=== PATIENT | male | born 1960 | race Caucasian/White ===

== ENCOUNTER 2020-04-27 17:10 | IRF | payer OTHER, SELFPAY ==
--- NOTE | ~2020-04-27 | MR_ITS ---
EXAMINATION: MR brain/brain stem wo/w con DATE: 05/06/2020 12:48 INDICATION: Adenocarcinoma of lung with metastasis. TECHNIQUE: Magnetic resonance imaging (MRI) of the brain and brainstem was performed without and with 12 mL MultiHance intravenous contrast. Sequences included sagittal and axial T1-weighted FSE, axial diffusion-weighted FS EPI, axial T2*-weighted GRE, axial T2-weighted FLAIR Propeller, and axial T2-we ighted Propeller. Postcontrast sequences included axial, sagittal, and coronal T1-weighted FSE. Appar ent diffusion coefficient (ADC) maps were created. COMPARISON: None. FINDINGS: There is diffuse brain volume loss. There is arachnoid cyst posterior to the cerebellum diogenes suring 5.4 x 2.4 cm. There are scattered areas of nonspecific increased T2-weighted signal intensity in the cerebral white matter, which is within normal limits for the patient's age. The ventricles are normal in size. The paranasal sinuses are clear. The orbits are normal. The mastoid air cells are no rmal. IMPRESSION: 1. No evidence of metastatic disease. Reviewed, dictated and finalized at location A. RER PRESTRESSED CONCRETE
--- NOTE | ~2020-04-27 | XR_ITS ---
XR abdomen/kub 1V 05/09/2020 03:41 Indication: Difficulty urinating. Procedure: KUB Comparison: No prior studies for comparison. Findings: Nonobstructive bowel gas pattern. Moderate colonic fecal loading. Small right pleural effus ion. Possible gallstones. Right basilar consolidation may represent atelectasis or pneumonia. There a re vascular calcifications in the pelvis. There are surgical changes of the left hip. Impression: 1: No acute abdominal abnormality. 2: Right basilar airspace disease, atelectasis versus pneumonia. Small right effusion. 3: Possible cholelithiasis. Reviewed, dictated and finalized at location B. AND DRUG INSPECTOR Impression: 1: No acute abdominal abnormality. 2: Right basilar airspace disease, atelectasis versus pneumonia. Small right ef fusion. 3: Possible cholelithiasis.
--- NOTE | 2020-04-27 17:20 | ADMGEN ---
This patient, Nelson Randolph, was admitted to [facility] Room 224-02. Patient/family oriented to hospital policies and general routines including ID bracelet, bed and alarms, visiting hours, pain management, procedures, bathroom and other care routines, personal items, smoking policy, room service/diet, and visiting hours. Information on how to activate the Rapid Response Team has been discussed. Patient/Family are encouraged to report perceived risks to care and to ask questions if they do not understand what they are told or what they should do.
[2020-04-27 17:25] VITALS: BMI 20.6
[2020-04-27 17:30] VITALS: BP 150/74; PULSE 102; RESP 22; TEMP 37.2; O2SAT 100
[2020-04-27] MEDS: oxyCODONE HCL (*CRX) 5 MG TAB IR PO (19:42)
[2020-04-27 20:40] VITALS: PULSE 100; RESP 20; O2SAT 99
[2020-04-27 22:00] VITALS: BP 146/74; PULSE 100; RESP 20; TEMP 37.3; O2SAT 99
[2020-04-27] MEDS: ACETAMINOPHEN 325 MG TABLET 650 MG PO (22:56)
[2020-04-28] MEDS: oxyCODONE HCL (*CRX) 5 MG TAB IR PO ×2 (00:48→15:23)
[2020-04-28] MEDS: ACETAMINOPHEN 325 MG TABLET 650 MG PO ×3 (03:50→17:32)
[2020-04-28 05:02] LABS: Basophils Percent Auto 0.3 % (0.2-1.2); Eosinophils Absolute Auto 0.2 K/mm3 (0-0.3); Eosinophils Percent Auto 1.8 % (0-4.4); Hemoglobin 9.1 g/dL (14.0-18.0); Immature Granulocyte Absolute 0.41 K/mm3 (0.00-0.031); Immature Granulocyte Percent A 4.7 % (0-0.5); Lymphocytes Absolute Auto 1.26 K/mm3 (0.9-3.2); Lymphocytes Percent Auto 14.5 % (18.3-44.2); Mean Corpuscular HGB Conc 33.7 g/dl (32-36); Mean Corpuscular Hemoglobin 31.8 pg (26-34); Mean Corpuscular Volume 94.4 fl (80-100); Mean Platelet Volume 8.5 fl (7.4-10.4); Monocytes Absolute Auto 1.8 K/mm3 (0.1-0.6); Monocytes Percent Auto 20.8 % (2.6-8.5); Neutrophils Percent Auto 57.9 % (45.5-73.1); Platelet Count Result 369 k/mm3 (150-375); Red Blood Count 2.86 M/mm3 (4.6-6.20); Red Cell Distribution Width 12.2 % (11.5-14.5); White Blood Count 8.7 K/mm3 (4.5-10.0)
[2020-04-28 05:16] LABS: Anion Gap 5 mmol/L (8-16); Blood Urea Nitrogen 6 mg/dL (9-20); Calcium 9.1 mg/dL (8.4-10.2); Carbon Dioxide 32 mmol/L (22-30); Chloride 99 mmol/L (98-107); Estimated CRCL calculation 100 ml/min; Estimated Glomerular Filt Rate > 60; Glucose 129 mg/dL (75-110); Potassium 3.9 mmol/L (3.4-5.0); Sodium 136 mmol/L (137-145)
[2020-04-28 06:00] VITALS: BP 125/67; PULSE 86; RESP 18; TEMP 36.9; O2SAT 100
[2020-04-28] MEDS: oxyCODONE HCL (*CRX) 5 MG TAB IR 10 MG PO ×2 (09:16→21:52)
[2020-04-28] MEDS: ENOXAPARIN 40 MG/0.4 ML SYRINGE SUB-Q (09:16)
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
[2020-04-28 12:20] VITALS: BMI 20.6
[2020-04-28 14:00] VITALS: BP 133/66; PULSE 105; RESP 22; TEMP 37.1; O2SAT 100
--- NOTE | 2020-04-28 14:32 | RPD ---
INDIVIDUALIZED PLAN OF CARE FOR Nelson Randolph Brief Synthesis of Pre-Admission Screen, Post-Admission Evaluation and Therapy Evaluations: The patient presents to rehab with a left pathologic intertrochanteric femur fracture. Comorbidities include status post left intramedullary nailing, acute postoperative pain, acute blood loss anemia, lung cancer, widespread mutative metastatic disease, hyponatremia, hypertension, and tachycardia. The complexity of the patient's medical management, nursing, and therapy needs require an inpatient rehab hospital stay with a physician-led interdisciplinary team approach. The patient?s needs will be best met in an intensive program vs. at a lower level of care. The patient requires physician services for medical oversight, management of postop complications in setting of present comorbidities, and pain management. The patient requires nursing services for DVT prophylactics, infection protection, medication management and education, pressure relief, and wound care. Deficits include:ADLs, Balance, Endurance, Family Training/Education, Mobility, Pain Management, ROM, Safety, Strength, and Transfers Camera Technician/Case Management for: Discharge Planning and Patient/Family Counseling Physical Therapy: 5 days per week for 90 minutes. Treatments may include: Therapeutic Exercise, Gait Training, Neuromuscular Re-education, Transfer Training, Community Reintegration, Bed Mobility, Patient/Family Education, Wheelchair Mobility Group Therapy/Concurrent Therapy Rationales: -Improve attention span during functional activities in a distracted environment. -Enhance problem solving and/or adequate judgment skills during functional activities in a distracted environment. -Promote increased safety awareness in a distracted environment to reduce fall risk with functional tasks, transfers, and ambulation to allow a more safe, self-sufficient return to the home environment. -Improve dynamic balance skills to promote safety and independence with functional activities in a distracted environment for maximum gain. Occupational Therapy: 5 days per week for 90 minutes. Treatments may include: Therapeutic Exercise, Therapeutic Activity, Cognitive Training, Self-Care Transfer Training, Community Reintegration, Home Management, Patient/Family Education, Wheelchair Mobility Training, Energy Conservation Training Group Therapy/Concurrent Therapy Rationales: -Allow therapist to observe and teach generalization and carry-over of skills learned in individual therapy. -Enhance problem solving and sequencing skills during therapeutic activities in a distracted environment. -Promote increased safety awareness in a realistic setting to reduce fall risk with functional tasks due to visual and verbal distractions. -Increase functional level with ADLs, ADL transfers and use of adaptive equipment through therapeutic activities with others while promoting safety to allow a more safe, self-sufficient return home. Medical Prognosis: Good Anticipated Length of Stay: 7 days Rehab Goals: Eating Goal: 06-Independent Oral Hygiene Goal: 06-Independent Toileting Hygiene Goal: 06-Independent Shower/Bathe Self Goal: 06-Independent Upper Body Dressing Goal: 06-Independent Lower Body Dressing Goal: 06-Independent Putting On/Taking Off Footwear Goal: 06-Independent Rolling Left and Right Goal: 06-Independent Sit to Lying Goal: 04-Supervision or Touching Assistance Lying to Sitting on Side of Bed Goal: 04-Supervision or Touching Assistance Sit to Stand Goal: 06-Independent Chair/Nxm-vo-Pmhhf Transfer Goal: 06-Independent Toilet Transfer Goal: 06-Independent Car Transfer Goal: 06-Independent Walk 10' Goal: 06-Independent Walk 50' with Two Turns Goal: 06-Independent Walk 150' Goal: 06-Independent Walk 10' on Uneven Surface Goal: 04-Supervision or Touching Assistance 1 Step (Curb) Goal: 04-Supervision or Touching Assistance 4 Steps Goal: 04-Supervision or Touching Assistance 1
[2020-04-28 22:00] VITALS: BP 132/62; PULSE 89; RESP 19; TEMP 36.8; O2SAT 100
[2020-04-29] MEDS: ACETAMINOPHEN 325 MG TABLET 650 MG PO ×4 (01:10→21:50)
[2020-04-29] MEDS: oxyCODONE HCL (*CRX) 5 MG TAB IR 10 MG PO ×3 (04:54→18:16)
[2020-04-29 06:00] VITALS: BP 133/70; PULSE 86; RESP 19; TEMP 36.9; O2SAT 100
[2020-04-29] MEDS: ENOXAPARIN 40 MG/0.4 ML SYRINGE SUB-Q (08:31)
[2020-04-29 14:00] VITALS: BP 134/67; PULSE 96; RESP 20; TEMP 36.4; O2SAT 100
[2020-04-29] MEDS: CYCLOBENZAPRINE HCL 5 MG TABLET PO ×2 (14:44→21:52)
[2020-04-30] MEDS: oxyCODONE HCL (*CRX) 5 MG TAB IR 10 MG PO ×4 (00:52→23:15)
[2020-04-30] MEDS: ACETAMINOPHEN 325 MG TABLET 650 MG PO ×3 (04:05→20:28)
[2020-04-30 06:00] VITALS: BP 127/71; PULSE 92; RESP 20; TEMP 36.2; O2SAT 100
[2020-04-30] MEDS: CYCLOBENZAPRINE HCL 5 MG TABLET PO ×2 (06:18→12:20)
[2020-04-30 08:00] VITALS: PULSE 92; RESP 20; O2SAT 100
[2020-04-30] MEDS: ENOXAPARIN 40 MG/0.4 ML SYRINGE SUB-Q (08:19)
[2020-04-30 12:15] VITALS: TEMP 36.2
--- NOTE | 2020-04-30 12:40 | WPDNEURORHBP ---
Subjective Date/time seen: 04/30/20 12:40 60 years old has been admitted to rehab floor for the diagnosis of left pathological intertrochanteric femur fracture in addition to the comorbid condition of arthritis and pulmonary nodules and history of right partial lobectomy Review of Systems Review of Systems: All systems reviewed & are unremarkable except as noted in HPI and below Functional Status Ambulation Ability Ability to Ambulate 10 Feet: Contact Guard Ability to Ambulate 50 Feet With 2 Turns: Contact Guard Ambulation Assistive Devices: Walker, Standard Transfers Ability Ability to Transfer In/Out of Chair: Contact Guard Exam Narrative: Exam Narrative: on examination is awake alert cooperative in no obvious acute distress heart regular lungs clear abdomen is soft neurological examination is unchanged the wounds clean and is involving the physical therapy and occupational therapy Objective Data Vital Signs Vital Signs: Vital Signs - 24 hr 04/29/20 14:00 04/30/20 06:00 04/30/20 08:00 Temperature 36.4 C 36.2 C L Pulse Rate 96 92 92 Respiratory Rate 20 20 20 Blood Pressure 134/67 127/71 Pulse Oximetry 100 100 100 04/30/20 12:15 Temperature 36.2 C L Pulse Rate Respiratory Rate Blood Pressure Pulse Oximetry Intake/Output Intake/Output: Intake & Output 04/27/20 04/28/20 04/29/20 04/30/20 23:59 23:59 23:59 23:59 Intake Total 240 720 240 Balance 240 720 240 Meds/Results Medications: Active Medications Generic Name Dose Route Start Last Admin Trade Name Freq PRN Reason Stop Dose Admin Acetaminophen 650 mg 04/27/20 18:06 04/30/20 12:15 Acetaminophen 325 Mg Tablet PO 650 mg Q4H PRN Administration Mild Pain (1-3) or Fever Cyclobenzaprine HCl 5 mg 04/29/20 12:32 04/30/20 12:20 Cyclobenzaprine Hcl 5 Mg Tablet PO 5 mg Q6H PRN Administration Muscle Spasm Enoxaparin Sodium 40 mg 04/28/20 09:00 04/30/20 08:19 Enoxaparin 40 Mg/0.4 Ml Syringe SUB-Q 40 mg DAILY PEEWEE Administration Oxycodone HCl 5 mg 04/27/20 18:06 04/28/20 15:23 Oxycodone Hcl (*Crx) 5 Mg Tab Ir PO 5 mg Q6H PRN Administration Pain (Scale Score 4-6) Oxycodone HCl 10 mg 04/27/20 18:06 04/30/20 07:51 Oxycodone Hcl (*Crx) 5 Mg Tab Ir PO 10 mg Q6H PRN Administration Pain (Scale Score 7-10) Progress Note: A&P Assessment and Plan (1) Carcinoma of right lung: Code(s): C34.91 - Malignant neoplasm of unspecified part of right bronchus or lung Status: Acute (2) Intertrochanteric fracture of left femur: Code(s): S72.142A - Displaced intertrochanteric fracture of left femur, initial encounter for closed fracture Status: Acute Additional Plan stable therapy is being continued as such
[2020-04-30 14:00] VITALS: BP 137/65; PULSE 101; RESP 20; TEMP 37; O2SAT 100
[2020-04-30] MEDS: CYCLOBENZAPRINE HCL 10 MG TABLET PO (20:31)
[2020-04-30 20:33] VITALS: BP 122/64; PULSE 100; RESP 18; TEMP 37.2; O2SAT 100
[2020-05-01] MEDS: ACETAMINOPHEN 325 MG TABLET 650 MG PO ×4 (03:25→23:09)
[2020-05-01] MEDS: CYCLOBENZAPRINE HCL 10 MG TABLET PO ×3 (03:27→15:51)
[2020-05-01 04:52] VITALS: BP 120/71; PULSE 95; RESP 18; TEMP 36.8; O2SAT 99
[2020-05-01] MEDS: oxyCODONE HCL (*CRX) 5 MG TAB IR 10 MG PO ×3 (06:42→20:47)
[2020-05-01] MEDS: ENOXAPARIN 40 MG/0.4 ML SYRINGE SUB-Q (08:47)
[2020-05-01 14:00] VITALS: BP 114/64; PULSE 97; RESP 18; TEMP 36.3; O2SAT 100
[2020-05-01 20:00] VITALS: PULSE 97; RESP 18; O2SAT 100
[2020-05-01 22:00] VITALS: BP 130/77; PULSE 97; RESP 18; TEMP 37.1; O2SAT 100
[2020-05-02] MEDS: oxyCODONE HCL (*CRX) 5 MG TAB IR 10 MG PO ×3 (03:31→18:06)
[2020-05-02] MEDS: ACETAMINOPHEN 325 MG TABLET 650 MG PO ×3 (05:54→20:39)
[2020-05-02] MEDS: CYCLOBENZAPRINE HCL 10 MG TABLET PO ×3 (05:55→20:39)
[2020-05-02 06:00] VITALS: BP 118/73; PULSE 98; RESP 18; TEMP 36.3; O2SAT 100
[2020-05-02] MEDS: ENOXAPARIN 40 MG/0.4 ML SYRINGE SUB-Q (08:38)
--- NOTE | 2020-05-02 10:17 | WPDNEURORHBP ---
Subjective Date/time seen: 05/02/20 10:17 60 years old has been admitted to the rehab floor for the diagnosis of left femur intertrochanteric pathological fracture in addition to ongoing complaints of intermittent spasm for which he is taking his plasma lytic medication which has been gradually increase he definitely feels 75% better as for the spasms are concerned he has no other specific problem Review of Systems Review of Systems: All systems reviewed & are unremarkable except as noted in HPI and below Functional Status Ambulation Ability Ability to Ambulate 10 Feet: Standby Assistance Ability to Ambulate 50 Feet With 2 Turns: Standby Assistance Ability to Ambulate 150 Feet: Standby Assistance Ambulation Assistive Devices: Walker, Standard Transfers Ability Ability to Transfer In/Out of Chair: Standby Assistance Exam Narrative: Exam Narrative: on examination he is awake alert cooperative speech nor dysphasic no dysarthric not dysphonic pupils round regular feels the vision full extraocular movements full with no nystagmus face symmetrical tongue midline motor examination reveals no drift of 1 side or other side reflexes are sluggish but symmetrical and plantars are downgoing heart regular lungs clear abdomen soft Objective Data Vital Signs Vital Signs: Vital Signs - 24 hr 05/01/20 14:00 05/01/20 20:00 05/01/20 22:00 Temperature 36.3 C L 37.1 C Pulse Rate 97 97 97 Respiratory Rate 18 18 18 Blood Pressure 114/64 130/77 Pulse Oximetry 100 100 100 05/02/20 06:00 Temperature 36.3 C L Pulse Rate 98 Respiratory Rate 18 Blood Pressure 118/73 Pulse Oximetry 100 Intake/Output Intake/Output: Intake & Output 04/29/20 04/30/20 05/01/20 05/02/20 23:59 23:59 23:59 23:59 Intake Total 887 479 2416 240 Balance 169 930 3253 240 Meds/Results Medications: Active Medications Generic Name Dose Route Start Last Admin Trade Name Freq PRN Reason Stop Dose Admin Acetaminophen 650 mg 04/27/20 18:06 05/02/20 05:54 Acetaminophen 325 Mg Tablet PO 650 mg Q4H PRN Administration Mild Pain (1-3) or Fever Cyclobenzaprine HCl 10 mg 04/30/20 13:00 05/02/20 05:55 Cyclobenzaprine Hcl 10 Mg Tablet PO 10 mg Q6H PRN Administration Muscle Spasm Enoxaparin Sodium 40 mg 04/28/20 09:00 05/02/20 08:38 Enoxaparin 40 Mg/0.4 Ml Syringe SUB-Q 40 mg DAILY PEEWEE Administration Oxycodone HCl 5 mg 04/27/20 18:06 04/28/20 15:23 Oxycodone Hcl (*Crx) 5 Mg Tab Ir PO 5 mg Q6H PRN Administration Pain (Scale Score 4-6) Oxycodone HCl 10 mg 04/27/20 18:06 05/02/20 03:31 Oxycodone Hcl (*Crx) 5 Mg Tab Ir PO 10 mg Q6H PRN Administration Pain (Scale Score 7-10) Progress Note: A&P Assessment and Plan (1) Carcinoma of right lung: Code(s): C34.91 - Malignant neoplasm of unspecified part of right bronchus or lung Status: Acute (2) Intertrochanteric fracture of left femur: Code(s): S72.142A - Displaced intertrochanteric fracture of left femur, initial encounter for closed fracture Status: Acute Additional Plan stable continue the treatment as such
[2020-05-02 14:00] VITALS: BP 120/65; PULSE 111; RESP 18; TEMP 37; O2SAT 99
--- NOTE | 2020-05-02 14:50 | PCDIET ---
Nutrition Follow-Up Complete: Nutrition Diagnosis: Involuntary weight loss related to decreased appetite and decreased mobility as evidenced by reported decreased intake and some weight loss . Nutrition Goal: Patient to consume 75% of meals/supplements or greater and maintain weight. Intake goal met. Patient consuming 75-100% of most meals with chocolate Ensure Enlive TID. Diet remains regular which is appropriate. Unable to evaluate weight goal until new weight is obtained. Last recorded weight is 63.4 kg. Recommend obtaining new weight. Bowel Motility: +BM today. Labs Reviewed: No new labs available. Meds Noted: Roxicodone Additional Notes: Dressings to incisions on left hip and left knee. No documented pressure ulcers. Will continue to monitor with same goals. Nutrition Monitoring and Evaluation: Follow up in 7 days.
--- NOTE | 2020-05-02 15:15 | PCOTNOTE ---
Mr. Randolph is a 60 year old male with a diagnosis of Mr. Randolph was evaluated for a tub transfer bench 05/02/20 by this occupational therapist. The tub transfer bench will resolve that patient?s self-care limitations and will be used for ADL?s within the home. The patient is unable to step over edge of tub safely due to right lower extremity weakness and impaired balance following pathological fracture of left femur with intramedullary nailing and is unable to tolerate standing while maintaining balance for completion of bathing due to left lower extremity pain with standing, weakness, and impaired balance. The patient can safely use the tub transfer bench. The tub transfer bench will decrease caregiver burden and allow for safety and independence with bathing in patient's home. The tub transfer bench is required due to patients? history of left femur pathological fracture with IM nailing complicated by h/o lung CA with mets to bone and arthritis. I agree with and certify that the above recommendation is medically necessary. Referring Physician Date
[2020-05-02 20:41] VITALS: BP 122/54; PULSE 107; RESP 16; TEMP 37.3; O2SAT 99
[2020-05-03] MEDS: oxyCODONE HCL (*CRX) 5 MG TAB IR 10 MG PO ×4 (01:06→22:58)
[2020-05-03] MEDS: ACETAMINOPHEN 325 MG TABLET 650 MG PO ×3 (03:24→20:04)
[2020-05-03] MEDS: CYCLOBENZAPRINE HCL 10 MG TABLET PO ×3 (03:25→20:05)
[2020-05-03 05:54] VITALS: BP 126/72; PULSE 91; RESP 16; TEMP 36.4; O2SAT 100
[2020-05-03] MEDS: oxyCODONE HCL (*CRX) 5 MG TAB IR PO (07:58)
[2020-05-03] MEDS: ENOXAPARIN 40 MG/0.4 ML SYRINGE SUB-Q (10:24)
--- NOTE | 2020-05-03 11:18 | P.PNNERE_ITS ---
Subjective Date/time seen: 05/03/20 11:18 60 years old has been admitted to the rehab floor of [facility] for the diagnosis of left femur intertrochanteric pathological fracture in addition to the ongoing comorbid conditions of intermittent spasm for which she has been taking the muscle relaxer which has been gradually increased and he is definitely improving and feeling less spasm his case was discussed in the meeting as well Functional Status Ambulation Ability Ability to Ambulate 10 Feet: Standby Assistance Ability to Ambulate 50 Feet With 2 Turns: Standby Assistance Ability to Ambulate 150 Feet: Standby Assistance Ambulation Assistive Devices: Walker, Standard Transfers Ability Ability to Transfer In/Out of Chair: Standby Assistance Exam Narrative: Exam Narrative: on examination he is awake alert cooperative his speech nor dysphasic no dysarthric no dysphonic is comfortable sitting in chair pupils round regular feels the vision full extraocular movements full face symmetrical tongue midline motor examination revealed him to have limited exam on the left side but otherwise reflexes are intact plantars are downgoing heart regular lungs clear abdomen soft Objective Data Vital Signs Vital Signs: Vital Signs - 24 hr 05/02/20 14:00 05/02/20 20:41 05/03/20 05:54 Temperature 37.0 C 37.3 C 36.4 C L Pulse Rate 111 H 107 H 91 Respiratory Rate 18 16 16 Blood Pressure 120/65 122/54 L 126/72 Pulse Oximetry 99 99 100 Intake/Output Intake/Output: Intake & Output 04/30/20 05/01/20 05/02/20 05/03/20 23:59 23:59 23:59 23:59 Intake Total 720 1200 840 240 Balance 720 1200 840 240 Meds/Results Medications: Active Medications Generic Name Dose Route Start Last Admin Trade Name Freq PRN Reason Stop Dose Admin Acetaminophen 650 mg 04/27/20 18:06 05/03/20 03:24 Acetaminophen 325 Mg Tablet PO 650 mg Q4H PRN Administration Mild Pain (1-3) or Fever Cyclobenzaprine HCl 10 mg 04/30/20 13:00 05/03/20 03:25 Cyclobenzaprine Hcl 10 Mg Tablet PO 10 mg Q6H PRN Administration Muscle Spasm Enoxaparin Sodium 40 mg 04/28/20 09:00 05/03/20 10:24 Enoxaparin 40 Mg/0.4 Ml Syringe SUB-Q 40 mg DAILY PEEWEE Administration Oxycodone HCl 5 mg 04/27/20 18:06 05/03/20 07:58 Oxycodone Hcl (*Crx) 5 Mg Tab Ir PO 5 mg Q6H PRN Administration Pain (Scale Score 4-6) Oxycodone HCl 10 mg 04/27/20 18:06 05/03/20 08:00 Oxycodone Hcl (*Crx) 5 Mg Tab Ir PO 10 mg Q6H PRN Administration Pain (Scale Score 7-10) Polyethylene Glycol 17 gm 05/02/20 14:09 Polyethylene Glycol 3350 17 Gm Powd.Pack PO DAILY PRN Constipation Progress Note: A&P Assessment and Plan (1) Carcinoma of right lung: Code(s): C34.91 - Malignant neoplasm of unspecified part of right bronchus or lung Status: Acute (2) Intertrochanteric fracture of left femur: Code(s): S72.142A - Displaced intertrochanteric fracture of left femur, initial encounter for closed fracture Status: Acute Additional Plan is stable as well as improving and becoming more comfortable in the physical therapy case was discussed in the weekly meeting as well
[2020-05-03 14:00] VITALS: BP 112/62; PULSE 102; RESP 16; TEMP 36.8; O2SAT 100
[2020-05-03 21:59] VITALS: BP 121/64; PULSE 90; RESP 20; TEMP 36.7; O2SAT 100
[2020-05-04] MEDS: ACETAMINOPHEN 325 MG TABLET 650 MG PO ×4 (02:45→22:44)
[2020-05-04] MEDS: CYCLOBENZAPRINE HCL 10 MG TABLET PO ×4 (02:46→22:45)
[2020-05-04 06:00] VITALS: BP 127/68; PULSE 95; RESP 20; TEMP 37.1; O2SAT 100
[2020-05-04] MEDS: oxyCODONE HCL (*CRX) 5 MG TAB IR 10 MG PO ×3 (07:41→20:04)
[2020-05-04] MEDS: ENOXAPARIN 40 MG/0.4 ML SYRINGE SUB-Q (08:31)
--- NOTE | 2020-05-04 12:11 | P.PNNERE_ITS ---
Subjective Date/time seen: 05/04/20 12:11 60 years old has been admitted to the rehab floor for left femur intertrochanteric pathological fracture in addition to the ongoing comorbid complaints of muscle spasm which has been gradually improving with the medication Review of Systems Review of Systems: All systems reviewed & are unremarkable except as noted in HPI and below Functional Status Ambulation Ability Ability to Ambulate 10 Feet: Independent Ability to Ambulate 50 Feet With 2 Turns: Standby Assistance Ability to Ambulate 150 Feet: Standby Assistance Ambulation Assistive Devices: Walker, Standard Transfers Ability Ability to Transfer In/Out of Chair: Independent Exam Narrative: Exam Narrative: remains awake alert his speech nor dysphasic not dysarthric ear nose throat examination normal heart regular lungs clear neurologically has no obvious deficit Objective Data Vital Signs Vital Signs: Vital Signs - 24 hr 05/03/20 14:00 05/03/20 21:59 05/04/20 06:00 Temperature 36.8 C 36.7 C 37.1 C Pulse Rate 102 H 90 95 Respiratory Rate 16 20 20 Blood Pressure 112/62 121/64 127/68 Pulse Oximetry 100 100 100 Intake/Output Intake/Output: Intake & Output 05/01/20 05/02/20 05/03/20 05/04/20 23:59 23:59 23:59 23:59 Intake Total 1200 840 960 120 Balance 1200 840 960 120 Meds/Results Medications: Active Medications Generic Name Dose Route Start Last Admin Trade Name Freq PRN Reason Stop Dose Admin Acetaminophen 650 mg 05/04/20 17:00 Acetaminophen 325 Mg Tablet PO Q6H [facility] Cyclobenzaprine HCl 10 mg 05/04/20 17:00 Cyclobenzaprine Hcl 10 Mg Tablet PO Q6H [facility] Enoxaparin Sodium 40 mg 04/28/20 09:00 05/04/20 08:31 Enoxaparin 40 Mg/0.4 Ml Syringe SUB-Q 40 mg DAILY [facility] Administration Oxycodone HCl 10 mg 05/04/20 14:00 Oxycodone Hcl (*Crx) 5 Mg Tab Ir PO Q6H PEEWEE Polyethylene Glycol 17 gm 05/02/20 14:09 Polyethylene Glycol 3350 17 Gm Powd.Pack PO DAILY PRN Constipation Progress Note: A&P Assessment and Plan (1) Carcinoma of right lung: Code(s): C34.91 - Malignant neoplasm of unspecified part of right bronchus or lung Status: Acute (2) Intertrochanteric fracture of left femur: Code(s): S72.142A - Displaced intertrochanteric fracture of left femur, initial encounter for closed fracture Status: Acute Additional Plan is stable will continue the treatment as such and will also schedule his pain medication
[2020-05-04 14:00] VITALS: BP 120/68; PULSE 102; RESP 18; TEMP 36.8; O2SAT 99
[2020-05-04 22:00] VITALS: BP 116/63; PULSE 91; RESP 17; TEMP 36.7; O2SAT 100
[2020-05-05] MEDS: oxyCODONE HCL (*CRX) 5 MG TAB IR 10 MG PO ×4 (02:02→20:40)
[2020-05-05] MEDS: ACETAMINOPHEN 325 MG TABLET 650 MG PO ×4 (04:52→23:10)
[2020-05-05] MEDS: CYCLOBENZAPRINE HCL 10 MG TABLET PO ×4 (04:52→23:10)
[2020-05-05 05:58] LABS: Basophils Absolute Auto 0.1 K/mm3 (0.0-0.1); Basophils Percent Auto 0.8 % (0.2-1.2); Eosinophils Absolute Auto 0.2 K/mm3 (0-0.3); Eosinophils Percent Auto 3.4 % (0-4.4); Hemoglobin 9.1 g/dL (14.0-18.0); Immature Granulocyte Absolute 0.17 K/mm3 (0.00-0.031); Immature Granulocyte Percent A 2.7 % (0-0.5); Lymphocytes Absolute Auto 1.22 K/mm3 (0.9-3.2); Lymphocytes Percent Auto 19.1 % (18.3-44.2); Mean Corpuscular HGB Conc 32.5 g/dl (32-36); Mean Corpuscular Hemoglobin 31.2 pg (26-34); Mean Corpuscular Volume 95.9 fl (80-100); Mean Platelet Volume 8.1 fl (7.4-10.4); Monocytes Absolute Auto 0.8 K/mm3 (0.1-0.6); Neutrophils Absolute Auto 3.9 K/mm3 (1.3-6.7); Platelet Count Result 746 k/mm3 (150-375); Red Blood Count 2.92 M/mm3 (4.6-6.20); Red Cell Distribution Width 12.5 % (11.5-14.5); White Blood Count 6.4 K/mm3 (4.5-10.0)
[2020-05-05 06:00] VITALS: BP 114/63; PULSE 80; RESP 16; TEMP 36.5; O2SAT 100
[2020-05-05 06:22] LABS: Anion Gap 4 mmol/L (8-16); Blood Urea Nitrogen 7 mg/dL (9-20); Calcium 9.1 mg/dL (8.4-10.2); Carbon Dioxide 33 mmol/L (22-30); Chloride 99 mmol/L (98-107); Estimated CRCL calculation 100 ml/min; Estimated Glomerular Filt Rate > 60; Glucose 97 mg/dL (75-110); Potassium 3.9 mmol/L (3.4-5.0); Sodium 136 mmol/L (137-145)
[2020-05-05] MEDS: ENOXAPARIN 40 MG/0.4 ML SYRINGE SUB-Q (08:38)
[2020-05-05 14:00] VITALS: BP 112/64; PULSE 90; RESP 20; TEMP 37.1; O2SAT 100
[2020-05-06] MEDS: oxyCODONE HCL (*CRX) 5 MG TAB IR 10 MG PO ×4 (02:14→20:17)
[2020-05-06] MEDS: CYCLOBENZAPRINE HCL 10 MG TABLET PO ×4 (05:07→23:29)
[2020-05-06] MEDS: ACETAMINOPHEN 325 MG TABLET 650 MG PO ×4 (05:07→23:29)
[2020-05-06 06:00] VITALS: BP 127/74; PULSE 68; RESP 18; TEMP 37.1; O2SAT 97
[2020-05-06] MEDS: ENOXAPARIN 40 MG/0.4 ML SYRINGE SUB-Q (09:14)
--- NOTE | 2020-05-06 10:30 | WPDNEURORHBP ---
Subjective Date/time seen: 05/06/20 10:30 60 years old admitted to the rehab floor for left femur intertrochanteric pathological fracture in addition to the history of underlying carcinoma of the lung. he is supposed to go to his physician for the follow-up and will need an MRI done today. most likely he will be discharged on Saturday Review of Systems Review of Systems: All systems reviewed & are unremarkable except as noted in HPI and below Functional Status Ambulation Ability Ability to Ambulate 10 Feet: Independent Ability to Ambulate 50 Feet With 2 Turns: Independent Ability to Ambulate 150 Feet: Independent Ambulation Assistive Devices: Walker, Standard Transfers Ability Ability to Transfer In/Out of Chair: Independent Exam Narrative: Exam Narrative: on examination he is awake alert in no obvious acute distress. His speech is not dysphasic not dysarthric not dysphonic neck is supple with no restriction of the range of motions no bruit. Heart regular with no murmur. Lungs clear without rhonchi or crepitations. Abdomen is soft with no organomegaly. Neurological examination is unchanged. He is having less frequent spasm and happy with the his plasma lytic medication and looking forward for the MRI to be done today Objective Data Vital Signs Vital Signs: Vital Signs - 24 hr 05/05/20 14:00 05/06/20 06:00 Temperature 37.1 C 37.1 C Pulse Rate 90 68 Respiratory Rate 20 18 Blood Pressure 112/64 127/74 Pulse Oximetry 100 97 Intake/Output Intake/Output: Intake & Output 05/03/20 05/04/20 05/05/20 05/06/20 23:59 23:59 23:59 23:59 Intake Total 960 600 960 240 Balance 960 600 960 240 Meds/Results Medications: Active Medications Generic Name Dose Route Start Last Admin Trade Name Freq PRN Reason Stop Dose Admin Acetaminophen 650 mg 05/04/20 17:00 05/06/20 05:07 Acetaminophen 325 Mg Tablet PO 650 mg Q6H PEEWEE Administration Cyclobenzaprine HCl 10 mg 05/04/20 17:00 05/06/20 05:07 Cyclobenzaprine Hcl 10 Mg Tablet PO 10 mg Q6H PEEWEE Administration Enoxaparin Sodium 40 mg 04/28/20 09:00 05/06/20 09:14 Enoxaparin 40 Mg/0.4 Ml Syringe SUB-Q 40 mg DAILY PEEWEE Administration Oxycodone HCl 10 mg 05/04/20 14:00 05/06/20 09:14 Oxycodone Hcl (*Crx) 5 Mg Tab Ir PO 10 mg Q6H PEEWEE Administration Polyethylene Glycol 17 gm 05/02/20 14:09 Polyethylene Glycol 3350 17 Gm Powd.Pack PO DAILY PRN Constipation Progress Note: A&P Assessment and Plan (1) Carcinoma of right lung: Code(s): C34.91 - Malignant neoplasm of unspecified part of right bronchus or lung Status: Acute (2) Intertrochanteric fracture of left femur: Code(s): S72.142A - Displaced intertrochanteric fracture of left femur, initial encounter for closed fracture Status: Acute Additional Plan treatment will be continued as such will discharge him on Mondays
[2020-05-06 14:00] VITALS: BP 123/72; PULSE 60; RESP 16; TEMP 36.9; O2SAT 97
[2020-05-06 22:00] VITALS: BP 130/76; PULSE 101; RESP 19; TEMP 37; O2SAT 100
[2020-05-07] MEDS: oxyCODONE HCL (*CRX) 5 MG TAB IR 10 MG PO ×4 (02:41→19:34)
[2020-05-07] MEDS: CYCLOBENZAPRINE HCL 10 MG TABLET PO (05:11)
[2020-05-07] MEDS: ACETAMINOPHEN 325 MG TABLET 650 MG PO ×4 (05:11→23:07)
[2020-05-07 05:53] VITALS: BP 123/68; PULSE 94; RESP 17; TEMP 36.1; O2SAT 100
[2020-05-07] MEDS: ENOXAPARIN 40 MG/0.4 ML SYRINGE SUB-Q (09:23)
[2020-05-07 14:00] VITALS: BP 129/75; PULSE 102; RESP 16; TEMP 37.1; O2SAT 100
[2020-05-07 22:00] VITALS: BP 112/67; PULSE 88; RESP 18; TEMP 36.9; O2SAT 99
[2020-05-08] MEDS: oxyCODONE HCL (*CRX) 5 MG TAB IR 10 MG PO ×4 (03:32→20:24)
[2020-05-08] MEDS: ACETAMINOPHEN 325 MG TABLET 650 MG PO ×4 (04:55→23:33)
[2020-05-08 06:00] VITALS: BP 119/72; PULSE 90; RESP 20; TEMP 36.6; O2SAT 98
[2020-05-08] MEDS: ENOXAPARIN 40 MG/0.4 ML SYRINGE SUB-Q (08:43)
[2020-05-08] MEDS: CYCLOBENZAPRINE HCL 10 MG TABLET PO ×3 (12:32→23:33)
[2020-05-08 14:00] VITALS: BP 141/77; PULSE 98; RESP 18; TEMP 36.6; O2SAT 99
[2020-05-08 22:00] VITALS: BP 120/64; PULSE 92; RESP 18; TEMP 36.7; O2SAT 99
[2020-05-09] MEDS: oxyCODONE HCL (*CRX) 5 MG TAB IR 10 MG PO ×2 (02:38→08:16)
[2020-05-09 03:55] LABS: Add Urine Microscopic? NO; Appearance Urine Clear (Clear); Bilirubin Urine Negative (Negative); Blood Urine Negative (Negative); Color Urine Straw (Yellow); Glucose Urine UA Negative (Negative); Ketones Urine Negative (Negative); Leukocyte Esterase Ur Negative LEU/UL (Negative); Nitrate Urine Negative (Negative); Protein Urine Negative (Negative); Specific Grav Ur 1.009 (1.001-1.035); Urobilinogen Urine Negative mg/dL (<2.0)
[2020-05-09] MEDS: ACETAMINOPHEN 325 MG TABLET 650 MG PO ×2 (05:46→10:58)
[2020-05-09] MEDS: CYCLOBENZAPRINE HCL 10 MG TABLET PO ×2 (05:46→10:57)
[2020-05-09 06:00] VITALS: BP 121/72; PULSE 86; RESP 18; TEMP 36.6; O2SAT 92
[2020-05-09] MEDS: ENOXAPARIN 40 MG/0.4 ML SYRINGE SUB-Q (08:17)
--- NOTE | 2020-05-09 09:43 | WPDNEURORHBP ---
Subjective Date/time seen: 05/09/20 09:43 60 years old has been admitted to the rehab floor for left femur intertrochanteric pathological fracture with complaints of recurrent spasms which are definitely under control with the medication he does have underlying history of carcinoma of the lung he was complaining of headache a CT scan of the head was repeated which revealed no evidence of metastatic disease to the brain he is involved in the physical therapy Review of Systems Review of Systems: All systems reviewed & are unremarkable except as noted in HPI and below Functional Status Ambulation Ability Ability to Ambulate 10 Feet: Independent Ability to Ambulate 50 Feet With 2 Turns: Independent Ability to Ambulate 150 Feet: Independent Ambulation Assistive Devices: Walker, Standard Transfers Ability Ability to Transfer In/Out of Chair: Independent Exam Narrative: Exam Narrative: on examination he is awake alert cooperative in no obvious acute distress his speech nor dysphasic not dysarthric not dysphonic ear nose throat examination normal neck supple with no cervical bruit no thyromegaly no lymphadenopathy heart regular with no murmur lungs clear with no rhonchi or crepitation abdomen is soft nontender and neuro examination unchanged wound is clean Objective Data Vital Signs Vital Signs: Vital Signs - 24 hr 05/08/20 14:00 05/08/20 22:00 05/09/20 06:00 Temperature 36.6 C 36.7 C 36.6 C Pulse Rate 98 92 86 Respiratory Rate 18 18 18 Blood Pressure 141/77 H 120/64 121/72 Pulse Oximetry 99 99 92 Intake/Output Intake/Output: Intake & Output 05/06/20 05/07/20 05/08/20 05/09/20 23:59 23:59 23:59 23:59 Intake Total 647 366 9015 240 Balance 429 568 7747 240 Meds/Results Medications: Active Medications Generic Name Dose Route Start Last Admin Trade Name Freq PRN Reason Stop Dose Admin Acetaminophen 650 mg 05/04/20 17:00 05/09/20 05:46 Acetaminophen 325 Mg Tablet PO 650 mg Q6H PEEWEE Administration Cyclobenzaprine HCl 10 mg 05/04/20 17:00 05/09/20 05:46 Cyclobenzaprine Hcl 10 Mg Tablet PO 10 mg Q6H PEEWEE Administration Enoxaparin Sodium 40 mg 04/28/20 09:00 05/09/20 08:17 Enoxaparin 40 Mg/0.4 Ml Syringe SUB-Q 40 mg DAILY PEEWEE Administration Oxycodone HCl 10 mg 05/04/20 14:00 05/09/20 08:16 Oxycodone Hcl (*Crx) 5 Mg Tab Ir PO 10 mg Q6H PEEWEE Administration Polyethylene Glycol 17 gm 05/02/20 14:09 Polyethylene Glycol 3350 17 Gm Powd.Pack PO DAILY PRN Constipation Radiology Results: ITS Impressions Brain MRI 05/06/20 14:51 IMPRESSION: 1. No evidence of metastatic disease. Abdomen X-Ray 05/09/20 08:24 Impression: 1: No acute abdominal abnormality. 2: Right basilar airspace disease, atelectasis versus pneumonia. Small right effusion. 3: Possible cholelithiasis. Labs Labs: Laboratory Results - last 24 hr 05/09/20 03:36 Urine Color Straw Urine Appearance Clear Urine pH 7.0 Ur Specific Gordon 1.009 Urine Protein Negative Urine Glucose (UA) Negative Urine Ketones Negative Ur Blood (Man) Negative Urine Nitrate Negative Urine Bilirubin Negative Urine Urobilinogen Negative Leukocyte Esterase Rfl Negative Progress Note: A&P Assessment and Plan (1) Carcinoma of right lung: Code(s): C34.91 - Malignant neoplasm of unspecified part of right bronchus or lung Status: Acute (2) Intertrochanteric fracture of left femur: Code(s): S72.142A - Displaced intertrochanteric fracture of left femur, initial encounter for closed fracture Status: Acute Additional Plan stable continue the treatment as such
--- NOTE | 2020-05-10 11:16 | PM.DS ---
DS: Admitting Diagnosis Admitting Diagnosis Admitting Diagnosis: L IT Femur Facture ADMISSION FUNCTION 80 years old admitted to the acute rehab of [facility] his primary rehab impairment category of orthopedic an etiological diagnosis of left pathological intertrochanteric femur fracture in addition to the comorbid condition of 1. Status post right partial lobectomy for the carcinoma of the lung 2. Documented pathological intertrochanteric femur fracture on the left with intramedullary nailing 3. Anemia secondary to blood loss 4. Hypertension and 5. Tachycardia with electrolyte imbalance 6. With no history of COVID: patient also has undergone right partial lobectomy in 2018. Initial level of functions were as follows Eating independent Oral Care substantial Toileting Hygiene substantial Shower/Bathing substantial Upper Body Dressing supervision Lower Body Dressing substantial Don[place] Footwear substantial Rolling Left and Right unable Sit to Lying unable Lying to Sitting unable Sit to Stand substantial Bed to Chair Transfers substantial Toilet Transfers sustention Car Transfers unable Walking 10' partial agency sales management assistant Walking 50' with Two Turns partial agency sales management assistant Walking 150' unable Curb or Step unable 4 Steps unable 12 Steps unable Picking Up Object unable [Wheelchair Mobility 50'] supervision [Wheelchair Mobility 150'] supervision GOALS: Eating [INDEPENDENT] Oral Care [INDEPENDENT] Toileting Hygiene [INDEPENDENT] Shower/Bathing [INDEPENDENT] Upper Body Dressing [INDEPENDENT] Lower Body Dressing [INDEPENDENT] [place] Footwear [INDEPENDENT] Rolling Left and Right [INDEPENDENT] Sit to Lying super B Lying to Sitting supervision Sit to Stand [INDEPENDENT] Bed to Chair Transfers [INDEPENDENT] Toilet Transfers [INDEPENDENT] Car Transfers [INDEPENDENT] Walking 10' supervision Walking 50' with Two Turns [INDEPENDENT] Walking 150' [INDEPENDENT] Curb or Step supervision 4 Steps supervision 12 Steps not applicable Picking Up Object [INDEPENDENT] [Wheelchair Mobility 50'] [INDEPENDENT] [Wheelchair Mobility 150'] [INDEPENDENT] DISCHARGE PERFORMANCE: Eating [INDEPENDENT] Oral Care [INDEPENDENT] Toileting Hygiene [INDEPENDENT] Shower/Bathing [INDEPENDENT] Upper Body Dressing [INDEPENDENT] Lower Body Dressing [INDEPENDENT] Donning/[place] Footwear [INDEPENDENT] Rolling Left and Right [INDEPENDENT] Sit to Lying [INDEPENDENT] Lying to Sitting [INDEPENDENT] Sit to Stand [INDEPENDENT] Bed to Chair Transfers [INDEPENDENT] Toilet Transfers [INDEPENDENT] Car Transfers [INDEPENDENT] Walking 10' [INDEPENDENT] Walking 50' with Two Turns [INDEPENDENT] Walking 150' [INDEPENDENT] Curb or Step [INDEPENDENT] 4 Steps [INDEPENDENT] 12 Steps unable Picking Up Object [INDEPENDENT] [Wheelchair Mobility 50'] [INDEPENDENT] [Wheelchair Mobility 150'] [INDEPENDENT] during the entire hospitalization patient had no falls or injuries was actively involved in the physical therapy and occupational therapy and discharged to his home with instruction to be involved in the outpatient physical therapy and his condition significantly improved DS: Summary Time Spent with Patient Time attestation: Total time spent providing and/or coordinating discharge services: Discharge Plan Discharge Discharging Clinician: Payam Zuñiga Patient Disposition: Home, Self-Care Activity: may shower, no driving and follow weight bearing status Diet: as tolerated and regular Wound Care Instructions: change dressing daily Discharge Instructions: change coverlet dressing to left hip and by left knee daily. Kamari are intact at this time. Talk to your Orthopedic doctor regarding removal of the kamari and if dressing changes are needing to continue. You have been taking the oxycodone 10 mg every 6 hours at 2am, 8 am, 2 pm and 8 pm You have been taking Tylenol 650 mg as well as the Flexeril every 6 hours at the times of 5 am, 1
== END 2020-05-09 12:35 | disposition home or self-care (01) | DRG 560 ==
PROVIDERS: Admitting Provider Psychiatry & Neurology Neurology; PCP Physician Assistant; Visit Provider Psychiatry & Neurology Neurology
DX: M84.452D Pathological fracture, left femur, subsequent encounter for fracture with routine healing (principal); C34.91 Malignant neoplasm of unspecified part of right bronchus or lung; C79.9 Secondary malignant neoplasm of unspecified site; D62 Acute posthemorrhagic anemia; E87.1 Hypo-osmolality and hyponatremia; I10 Essential (primary) hypertension; M89.9 Disorder of bone, unspecified; M19.90 Unspecified osteoarthritis, unspecified site; R00.0 Tachycardia, unspecified; R25.2 Cramp and spasm; Z90.2 Acquired absence of lung [part of]; Z98.890 Other specified postprocedural states; V86.99XD Unspecified occupant of other special all-terrain or other off-road motor vehicle injured in nontraffic accident, subsequent encounter
CPT/HCPCS: 36415; 70553; 74018; 80048; 81003; 85025; 97110; 97116; 97140; 97161; 97166; 97530; 97535; 97542; A9270; A9577; J1650